=== PATIENT | male | born 1990 | race Caucasian/White ===

== ENCOUNTER 2019-03-27 20:20 | Emergency (ER) | payer MEDICAID ==
[2019-03-27 20:31] VITALS: BP 125/75
[2019-03-27] MEDS ORDERED: Ketorolac 30 MG/ML SDV IM ONE (20:36)
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
== END 2019-03-27 21:59 | disposition home or self-care (01) ==
LOC: JD.ED 20:20
DX: J02.9 Acute pharyngitis, unspecified (principal)
CPT/HCPCS: 87081; 87430; 96372; 99283; J1885

== ENCOUNTER 2019-07-31 19:38 | Emergency (ER) | payer OTHER ==
[2019-07-31 19:51] VITALS: BP 126/80; PULSE 89
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
[2019-07-31] MEDS ORDERED: FLU Vacc QS2019-20(6MOS+)/PF 60 MCG/0.5 ML SYRINGE IM ONE (20:15)
== END 2019-07-31 20:28 | disposition home or self-care (01) ==
LOC: JD.ED 19:38
DX: S80.822A Blister (nonthermal), left lower leg, initial encounter (principal); X58.XXXA Exposure to other specified factors, initial encounter
CPT/HCPCS: 90686; 99283

== ENCOUNTER 2020-12-02 12:01 | Emergency (ER) | payer MEDICAID, OTHER ==
[2020-12-02 12:27] VITALS: BP 118/76; PULSE 100
[2020-12-02] MEDS ORDERED: Ondansetron 4 MG Tab.DIS PO ONE (12:53)
[2020-12-02] MEDS ORDERED: Alum Hydrox/Mag Hydrox/Simeth 30 ML, Lidocaine 2% 15 ML PO ONE ×2 (12:53)
--- NOTE | 2020-12-02 13:35 | CR ---
Abdomen: Supine and upright views of the abdomen were obtained. Comparison: No previous study. Slight scoliosis is noted within the spine. Visualized lung bases show nothing acute. Bowel gas pattern appears normal. No abnormal calcifications or soft tissue abnormality is seen. Impression: 1. Nothing acute is seen on 2 view abdominal x-ray. Diagnostic code #2
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
--- NOTE | 2020-12-02 14:35 | CT ---
CT abdomen and pelvis Technique: Multiple axial sections were obtained from above the dome of the diaphragm inferiorly through the pubic symphysis. Intravenous and oral contrast not utilized. Reconstructed coronal and sagittal images were obtained. Comparison: Prior abdominal x-ray performed earlier on same day. Findings: Visualized lung bases show a small nodule within the left lung base which is calcified and is compatible with a granuloma. Noncontrast appearance of the liver shows no focal parenchymal abnormality. Spleen appears within normal limits. Adrenal glands show no nodule. Pancreas shows no discrete abnormality. Gallbladder contains no calcified gallstones. Kidneys show no abnormal calcifications. No ureteral dilatation or ureteral stone is seen. Abdominal aorta shows no aneurysm. No retroperitoneal adenopathy or mesenteric abnormalities are seen. Appendix is seen which is normal in size. No pelvic mass or adenopathy is appreciated. No bladder calculi are appreciated. No bowel dilatation or bowel wall thickening is appreciated. Bone window settings were reviewed which show no acute osseous finding. Impression: 1. Calcified granuloma within the left lung base. 2. Nothing acute is appreciated on noncontrast CT study of the abdomen and pelvis. Diagnostic code #2
== END 2020-12-02 15:30 | disposition home or self-care (01) ==
LOC: JD.ED 12:01
DX: R10.13 Epigastric pain (principal); R11.2 Nausea with vomiting, unspecified; Z79.899 Other long term (current) drug therapy; Z72.0 Tobacco use
CPT/HCPCS: 36415; 74019; 74176; 80053; 81001; 83690; 85025; 86140; 99284; A9270

== ENCOUNTER 2020-12-10 09:25 | Day surgery (SDC) | payer MEDICAID ==
[~2020-12-10 09:25] MED LIST: Lactated Ringers 1,000 ML IV SCH; Lidocaine 1% 4 ML ONE; Lidocaine 1%/Sod Bicarbonate in NS 8.4% 1 ML Syringe IDERM PRN; Propofol 200 MG/20 ML SDV ONE; Sodium Chloride 0.9% 10 ML Syringe FLUSH PRN
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
[2020-12-10] MEDS ORDERED: Midazolam 1 MG/ML 2 ML SDV ONE (10:40)
--- NOTE | 2020-12-10 10:58 | PCM.PRNOTE ---
- Free Text/Narrative Note: Date: 12/10/2020 Procedure: diagnostic esophagogastroduodenoscopy Indication: dysphagia, epigastric pain Endoscopist: Zhao De MD Findings: honeycombing of duodenal mucosa. Pseudopolypoid lesions at pylorus and gastric antrum. No fresh ulceration noted. No hiatal hernia. Gross evidence of distal esophagitis without gross metaplastic change. Detailed Report: The patient was taken to the endoscopy suite and placed in left lateral decubitus position. Timeout was performed and monitored anesthesia care was initiated. A bite-block was placed and the endoscope was inserted into the mouth and advanced to the duodenum. The duodenal mucosa appeared abnormal, with a honeycombed appearance suggestive of prior duodenal ulceration. A biopsy was obtained. The pylorus also appeared abnormal with prominent mucosal folds with polypoid surface appearance. A biopsy was obtained. Just proximal to this at the antral mucosa were a few discrete raised lesions with pseudopolyp appearance. 1 of these was biopsied. The remainder of the gastric mucosa appeared fairly normal. The incisura was without ulceration. On retroflexion, no hiatal hernia was appreciated. The scope was withdrawn into the distal esophagus. There appeared to be gross evidence of reflux esophagitis without gross appearance of Ambriz esophagus. A biopsy with cold forceps was obtained of distal esophageal mucosa. Air was suctioned from the stomach prior to withdrawal of the scope. The proximal esophagus and larynx appeared normal. The patient tolerated the procedure well.
--- NOTE | 2020-12-10 11:22 | PCM48HPAN ---
Post Anesthesia Note - EVALUATION WITHIN 48HRS OF ANESTHETIC Vital Signs in Normal Range: Yes Patient Participated in Evaluation: Yes Respiratory Function Stable: Yes Airway Patent: Yes Cardiovascular Function Stable: Yes Hydration Status Stable: Yes Pain Control Satisfactory: Yes Nausea and Vomiting Control Satisfactory: Yes Mental Status Recovered: Yes Vital Signs: Last Vital Signs Temp 37.0 C 12/10/20 10:56 Pulse 69 12/10/20 10:56 Resp 13 12/10/20 10:56 BP 88/53 L 12/10/20 10:56 Pulse Ox 96 12/10/20 10:56
[2020-12-10 11:28] VITALS: BP 101/69; PULSE 78
== END 2020-12-10 11:50 | disposition home or self-care (01) ==
LOC: JD.SDS 09:25
PROVIDERS: ATTEND Surgery
DX: K29.50 Unspecified chronic gastritis without bleeding (principal); B96.81 Helicobacter pylori [H. pylori] as the cause of diseases classified elsewhere; R13.10 Dysphagia, unspecified; Z79.899 Other long term (current) drug therapy; F17.210 Nicotine dependence, cigarettes, uncomplicated
CPT/HCPCS: 43239; J2250; J2704; J7120; 00731

== ENCOUNTER 2021-03-02 22:59 | Emergency (ER) | payer SELFPAY ==
[2021-03-02 23:22] VITALS: BP 118/81; PULSE 77
--- NOTE | 2021-03-02 23:56 | EDM.PDOC ---
ED HPI GENERAL MEDICAL PROBLEM - General Chief Complaint: General Stated Complaint: THROAT PAIN/CHEST PAIN MUCAS AND BURNING SOB Time Seen by Provider: 03/02/21 23:43 Source of Information: Reports: Patient History Limitations: Reports: No Limitations - History of Present Illness INITIAL COMMENTS - FREE TEXT/NARRATIVE: Mr. Winters is a pleasant 30-year-old gentleman who now presents the ED stating that he developed a cough, primarily nonproductive, but occasionally productive of greenish sputum, along with rhinorrhea, a scratchy/sore throat, and hoarse voice on 02/28/2021. No recent fever, chills, dyspnea, nausea, vomiting, or watery diarrhea. The patient states that he has taken ibuprofen, and, last night, NyQuil, but that these did not really help. The patient states that he received his first COVID vaccine about 1 month ago. Here in the ED, the patient is found to be hemodynamically stable, afebrile, saturating 98% on room air. He appears to be very comfortable, in no acute distress. Prior to Wednesday, the patient denies having a recent fever, chills, sore throat, ear pain, nasal or sinus congestion, cough, dyspnea, chest pain, palpitations, nausea, vomiting, constipation, diarrhea, abdominal pain, urinary symptoms, recent weight gain or weight loss, recent bloody bowel movements or black bowel movements, recent joint aches, headaches, or rashes. The patient does not have a PCP. - Related Data Allergies Allergy/AdvReac Type Severity Reaction Status Date / Time No Known Allergies Allergy Verified 03/02/21 23:22 Home Meds: Home Meds . [No Known Home Meds] 03/02/21 [History] Past Medical History HEENT History: Reports: Allergic Rhinitis, Impaired Vision Gastrointestinal History: Reports: PUD - Past Surgical History GI Surgical History: Reports: Colonoscopy (x 1), EGD (x 1) Social & Family History - Tobacco Use Tobacco Use Status *Q: Never Tobacco User Tobacco Use Within Last Twelve Months: Smokeless Tobacco (Chews 1/2 can per day) - Caffeine Use Caffeine Use: Reports: Soda - Alcohol Use Alcohol Use History: Yes Alcohol Use Frequency: Socially - Recreational Drug Use Recreational Drug Use: No - Living Situation & Occupation Living situation: Reports: Single, Alone Occupation: Employed ([place]) ED ROS GENERAL - Review of Systems Review Of Systems: Comprehensive ROS is negative, except as noted in HPI. ED EXAM, GENERAL - Physical Exam Exam: See Below Exam Limited By: No Limitations General Appearance: Alert, WD/WN, No Apparent Distress Eye Exam: Bilateral Eye: EOMI, Normal Inspection Ears: Normal External Exam, Normal Canal, Hearing Grossly Normal, Normal TMs Nose: Normal Inspection, Normal Mucosa, No Blood Throat/Mouth: Normal Inspection, Normal Lips, Normal Teeth, Normal Gums, Normal Oropharynx, Normal Voice, No Airway Compromise Head: Atraumatic, Normocephalic Neck: Normal Inspection, Supple, Non-Tender, Full Range of Motion. No: Lymphadenopathy (L), Lymphadenopathy (R) Respiratory/Chest: No Respiratory Distress, Lungs Clear, Normal Breath Sounds, No Accessory Muscle Use. No: Decreased Breath Sounds, Crackles, Rhonchi, Wheezing, Stridor, Prolonged Expiration Cardiovascular: Normal Peripheral Pulses, Regular Rate, Rhythm, No Edema, No Gallop, No JVD, No Murmur, No Rub Peripheral Pulses: 3+: Radial (L), Radial (R) GI/Abdominal: Normal Bowel Sounds, Soft, Non-Tender, No Organomegaly, No Distention, No Abnormal Bruit, No Mass Back Exam: Normal Inspection, Full Range of Motion, NT Extremities: Normal Inspection, Normal Range of Motion, No Pedal Edema, Normal Capillary Refill Neurological: Alert, Oriented, Normal Cognition, No Motor/Sensory Deficits Psychiatric: Normal Affect Skin Exam: Warm, Dry, Intact, Normal Color, No Rash Course - Vital Signs Last Recorded V/S: Last Vital Signs Temp 36.3 C 03/02/21 23:18 Pulse 77 03/02/21 23:18 Resp 16 03/02/21 23:18 BP 118/81 03/02/21 23:18 Pulse Ox 98 03/02/21 23:18 - Orders/Labs/Meds Orders: Active Orders 24 hr Category Date Time Status Chest 2V [CR] Stat Exams 03/02/21 23:52 Taken Labs: Laboratory Tests 03/02/21 Range/Units 23:55 Influenza Type A RNA Negative (NEGATIVE) Influenza Type B RNA Negative (NEGATIVE) SARS-CoV-2 RNA (ROBBIN) Negative (NEGATIVE) - Re-Assessments/Exams Free Text/Narrative Re-Assessment/Exam: 03/02/21 23:52 As above, the patient developed a cough, occasionally productive of greenish sputum, but mostly nonproductive, along with rhinorrhea, scratchy/sore throat, and hoarse voice this past Wednesday. No recent fever, and he denies having any associated wheezing. He has been taking ibuprofen, and, last night, some NyQuil, which did not really help. His physical exam is entirely normal. I have ordered a chest x-ray and a swab for the SARS-CoV-2 virus and influenza A + B viruses. Provided his chest x-ray is unremarkable, I do not see an indication for blood work. 03/03/21 00:49 Two-view chest radiograph appears to be grossly normal. The cardiac silhouette is within normal limits. No pulmonary vascular congestion. No pleural effusions. No focal infiltrate. No pneumothorax. Formal read per the Radiologist pending. The patient swab for the SARS-CoV-2 virus and influenza A + B viruses is negative for all. 03/03/21 00:51 Test results discussed with the patient. As above, today's work-up is unremarkable. His symptoms are most consistent with a viral URI, although not COVID or influenza. I explained that there are no medicines to treat a viral URI, that it will have to run its course. I advised against him taking any [id number] cough or cold remedies, as they have been shown to be of no benefit. Departure - Departure Time of Disposition: 00:51 Disposition: Home, Self-Care 01 Condition: Good Clinical Impression: Viral URI with cough - Discharge Information *PRESCRIPTION DRUG MONITORING PROGRAM REVIEWED*: Not Applicable *COPY OF PRESCRIPTION DRUG MONITORING REPORT IN PATIENT GIULIANA: Not Applicable Instructions: Upper Respiratory Infection, Adult, [id number] Referrals: PCP,None [Primary Care Provider] - Forms: ED Department Discharge Additional Instructions: You were seen in the emergency room after developing a cough, runny nose, scratchy/sore throat, and hoarse voice. Work-up in the ER included a chest x-ray and a swab for the SARS-CoV-2 virus and influenza A + B viruses. Your entire work-up was unremarkable. You do not have pneumonia, and your swabs returned negative. Based on your history, physical exam, and ER tests, you are most likely suffering from a viral URI, also known as a common cold. Unfortunately, there are no medicines to treat a common cold - it will have to run its course. We recommend that you do not take any [id number] cough or cold remedies, as they have been shown to be of no benefit, but do have side effects, such as an upset stomach. If any other problems, please do not hesitate to return to the ER. Sepsis Event Note (ED) - Evaluation Sepsis Screening Result: No Definite Risk - Focused Exam Vital Signs: Vital Signs Temp Pulse Resp BP Pulse Ox 03/02/21 23:18 36.3 C 77 16 118/81 98 - My Orders Last 24 Hours: My Active Orders 03/02/21 23:52 Chest 2V [CR] Stat - Assessment/Plan Last 24 Hours: My Active Orders 03/02/21 23:52 Chest 2V [CR] Stat
[2021-03-03 00:39] LABS: CORONAVIRUS COVID-19 NAA NEGATIVE (NEGATIVE)
--- NOTE | 2021-03-03 09:03 | CR ---
Chest: 2 views of the chest were obtained. Comparison: No prior chest imaging is available. Heart size and mediastinum are normal. Lungs are clear with no acute parenchymal change. Minimal scoliosis is noted. Bony structures are otherwise within normal limits for the patient's age. Impression: 1. Nothing acute is seen on 2 view chest x-ray. Diagnostic code #2
== END 2021-03-03 00:58 | disposition home or self-care (01) ==
LOC: JD.ED 22:59
DX: J06.9 Acute upper respiratory infection, unspecified (principal); Z20.822 Contact with and (suspected) exposure to COVID-19
CPT/HCPCS: 0240U; 71046; 99283

== ENCOUNTER 2024-10-10 14:26 | Emergency (ER) | payer SELFPAY ==
[2024-10-10] MEDS: Ketorolac 60 MG/2 ML SDV IM ONE (16:52)
[2024-10-10] MEDS: Sulfamethoxazole/Trimethoprim 800-160 MG Tab PO STA (16:52)
[2024-10-10] MEDS: cefTRIAXone 2 GM, Lidocaine 1% 4.2 ML IM ONE (16:56)
[2024-10-10 17:59] VITALS: BP 106/74; PULSE 84
== END 2024-10-10 17:20 | disposition home or self-care (01) ==
LOC: JD.ED 14:26
DX: L02.424 Furuncle of left upper limb (principal); Z91.048 Other nonmedicinal substance allergy status; Z79.899 Other long term (current) drug therapy
CPT/HCPCS: 96372; 99283; A9270; J0696; J1885; J3490